=== PATIENT | male | born 1985 | race African-American/Black ===

== ENCOUNTER 2019-02-16 22:21 | Emergency (ER) | payer MEDICAID ==
[~2019-02-16] VITALS: Ht 170.2 cm; Wt 104.3 kg
[2019-02-16 22:26] VITALS: BP 164/103
[2019-02-16] MEDS: OLANZapine 5 MG ODT SL ONE (23:15)
[2019-02-17 00:05] VITALS: BP 176/101
[2019-02-17 00:18] LABS: BARBITURATE, URINE NEG. ng/ml (NEG <=200); BENZODIAZEPINE, URINE NEG. ng/mL (NEG <=200); CANNABINOID, URINE NEG. ng/mL (NEG <=50); COCAINE, URINE POS. ng/mL (NEG <=300); OPIATE, URINE NEG. ng/mL (NEG <=2000); PHENCYCLIDINE SCREEN,URINE NEG. ng/mL (NEG <=25)
== END 2019-02-17 00:06 | disposition home or self-care (01) ==
LOC: MED 22:21
DX: S53.401A Unspecified sprain of right elbow, initial encounter (principal); S80.01XA Contusion of right knee, initial encounter; F31.9 Bipolar disorder, unspecified; F14.10 Cocaine abuse, uncomplicated; V89.2XXA Person injured in unspecified motor-vehicle accident, traffic, initial encounter; Y93.89 Activity, other specified; Y92.410 Unspecified street and highway as the place of occurrence of the external cause; Y99.8 Other external cause status
CPT/HCPCS: 73080; 73562; 80305; 99284